=== PATIENT | female | born 1995 | race African-American/Black ===

== ENCOUNTER 2017-02-01 19:27 | Emergency (ER) | payer OTHER ==
[~2017-02-01] VITALS: Ht 167.6 cm; Wt 94.3 kg
[2017-02-01 19:29] VITALS: BP 110/72
[2017-02-01] MEDS ORDERED: ACETAMINOPHEN 325 MG TABLET PO ONE (20:00)
[2017-02-01] MEDS ORDERED: ACETAMINOPHEN 325 MG TABLET ONE (20:07)
[2017-02-01] MEDS ORDERED: DEXAMETHASONE 4 MG TABLET PO ONE (20:30)
[2017-02-01] MEDS ORDERED: DEXAMETHASONE 4 MG/ML, 5ML ONE (20:37)
== END 2017-02-01 20:58 | disposition home or self-care (01) ==
LOC: ED 20:40
DX: J02.0 Streptococcal pharyngitis (principal)
CPT/HCPCS: 87880; 99283